=== PATIENT | male | born 1945 | race Caucasian/White ===

== ENCOUNTER 2017-09-19 19:22 | Observation (INO) | payer MEDICARE, OTHER ==
[~2017-09-19] VITALS: Ht 182.9 cm; Wt 130.6 kg
[~2017-09-19 19:22] MED LIST: ACTOS 30 MG TAB30 M1 PO; ALLOPURINOL 30300 M1 PO; ALLOPURINOL 30300 M2 PO; ALLOPURINOL 30300 M3 PO; APRODINE TABLE1 EACH; ASPIR 8181 MG PO; ASPIRIN325; ATENOLOL 25 MG25 M1 PO; CENTRUM SILVER1 EAC4 PO; DHEA PO; DOCUSATE SODIU100 MG; ELIQUIS5 MG PO; ENOXAPARIN30 MG/0.3; FISH OIL 1,001000 M2 PO; FISH OIL 1,2001 EAC4 PO; HUMALOG SUBQ; HUMALOG100 UNIT/1 SUBQ; HYDROCODONE-AP1 EAC6 PO; KEFLEX500 MG PO; LANTUS SOL100 UNIT/1 SUBQ; LANTUS SUBQ; LANTUSSOLASTAR SUBQ; LASIX 20 MG TAB20 MG PO; LISINOPRIL20 MG PO; LISINOPRIL5 MG PO; METOPROLOL SUCC25 M1 PO; NORCO 5-325 TA1 EACH PO; ONDANSETRON HCL4 M2 PO; OXYCODONE HCL 55 MG PO; OXYCODONE HCL5 M1; POTASSIUM CITRATE PO; POTASSIUM20 PO; PRILOSEC PO; PROPAFENONE 15150 MG PO; SIMVASTATIN40 MG PO; SYMLINPEN1500 MCG/1 SUBQ; SYMLINPEN2700 MCG/2 SUBQ; SYNTHROID100 MCG PO; TOPROL XL25 MG PO; UNITHROID112 MCG PO; UROCIT-K10 ME1 PO; VITAMIN D1000 UNI1 PO; WELLBUTRIN SR100 MG PO; WELLBUTRIN SR150 MG PO; XALATAN2.5 ML OPHTHALMIC; ZOCOR20 MG PO; ZOLOFT100 MG PO; [UNRECOGNIZED DRUG - CODE] PO
[2017-09-19 19:23] VITALS: BP 109/48
[2017-09-19] MEDS ORDERED: WELLBUTRIN SR100 MG PO (19:37)
[2017-09-19] MEDS ORDERED: LOPRESSOR50 PO (19:38)
[2017-09-19] MEDS ORDERED: ZOLOFT 50 MG TA50 M1 PO (19:39)
[2017-09-19] MEDS ORDERED: MAGOX 400400 MG PO (19:39)
[2017-09-19] MEDS ORDERED: HUMALOG JU100 UNIT/1 SUBQ (19:40)
[2017-09-19] MEDS ORDERED: HYDROXYZINE HCL50 MG PO (19:40)
[2017-09-19] MEDS ORDERED: VIAGRA50 MG PO (19:40)
[2017-09-19] MEDS ORDERED: AMBIEN 5 MG TABL5 M1 PO (19:40)
[2017-09-19 19:59] LABS: ABSOLUTE EOSINOPHILS 0.1 thou/uL (0.0-0.7); ABSOLUTE LYMPHOCYTES 1.3 thou/uL (0.8-5.3); ABSOLUTE MONOCYTES 0.8 thou/uL (0.0-1.2); ABSOLUTE NEUTROPHILS 9.6 thou/uL (1.6-8.1); BASOPHILS 0.3 %; EOSINOPHILS 1.2 %; HEMATOCRIT 36.8 % (42.0-52.0); HEMOGLOBIN 12.1 gm/dL (14.0-18.0); LYMPHOCYTES 11.1 %; MCH 31.6 pg (26.0-34.0); MCHC 32.9 g/dL (28.0-37.0); MONOCYTES 6.5 %; MPV 9.3 fl. (7.2-11.1); NUCLEATED RBCS 0 /100WBC; PLATELET COUNT* 251 thou/uL (150-400); POLYS 80.9 %; RBC 3.83 mil/uL (4.50-6.00); RDW-CV 14.2 % (10.5-14.5); WBC 11.8 thou/uL (4.0-11.0)
[2017-09-19 20:03] LABS: ANION GAP 7 mmol/L (7-16); BUN 31 mg/dL (7-18); CALCIUM 8.2 mg/dL (8.5-10.1); CHLORIDE 105 mmol/L (98-107); CO2 27 mmol/L (21-32); CREATININE 1.2 mg/dL (0.6-1.3); GLUCOSE 131 mg/dL (70-99); POTASSIUM 3.3 mmol/L (3.5-5.1); SODIUM 139 mmol/L (136-145)
[2017-09-19 20:06] LABS: PROTIME 10.1 Seconds (9.20-11.50)
[2017-09-19 20:14] LABS: ALBUMIN 3.1 g/dL (3.4-5.0); ALKALINE PHOSPHATASE 61 U/L (46-116); LIPASE 66 U/L (73-393); NT-PRO BRAIN NAT PEPTIDE 292 pg/mL (<300); SGOT 15 U/L (15-37); SGPT 22 U/L (30-65); TOTAL BILIRUBIN 0.3 mg/dL (<0.1-1.0); TOTAL PROTEIN 6.4 g/dL (6.4-8.2); TROPONIN-I LEVEL <0.06 ng/mL (<0.06)
[2017-09-19 23:10] VITALS: BP 142/57
--- NOTE | 2017-09-20 00:58 | NUR ---
09/20/27 1045 PT ARRIVED VIA STRETCHER FROM ED IN STABLE CONDITION. AT BEDSIDE. PT ORIENTED TO SURROUNDING. AND ADMITTED TO UNIT
[2017-09-20 02:05] LABS: URINE BILIRUBIN NEGATIVE (Negative); URINE BLOOD NEGATIVE (Negative); URINE CLARITY CLEAR; URINE COLOR YELLOW; URINE GLUCOSE-RANDOM NEGATIVE (Negative); URINE KETONES TRACE (Negative); URINE LEUKOCYTES-REFLEX NEGATIVE (Negative); URINE NITRITE-REFLEX NEGATIVE (Negative); URINE PROTEIN NEGATIVE (Negative); URINE SPECIFIC GRAVITY 1.025 (1.005-1.030); URINE UROBILINOGEN 0.2 E.U./dl (0.2-1.0)
[2017-09-20 04:00] VITALS: BP 155/60
--- NOTE | 2017-09-20 04:31 | NUR ---
PT CONTINUES ON RA. PT SR W/BBB. PT CONTINUES WITH MAINTENANCE IVF TO CORRECT ADMITTING HYPOGLYCEMIA. PT HAS HAD NO C/O PAIN.
[2017-09-20 08:05] VITALS: BP 146/72
[2017-09-20 11:04] VITALS: BP 150/65
--- NOTE | 2017-09-20 11:42 | NUR ---
RECIEVED REPORT FROM LAKESHIA AND ASSUMED CARE OF PT @ 5351. PT A/O X4,VSS,TRACING SR BBB ON MONITOR.LUNG SOUNDS ARE CLEAR.LAST BM WAS 09-19-17.IV LEFT FOREARM PATENT AND SALINE LOCKED.ACCU CHECK COMPLETED PER ORDERS.PT IS CALM AND COOPERATIVE WITH NO C/O PAIN AT TIME OF ASSESSMENT.PT IS UP SBA TO BATHROOM.PT LEFT RESTING IN BED WITH CALL LIGHT AND FALL PRECAUTIONS IN PLACE.WILL CONTINUE TO MONITOR.
--- NOTE | 2017-09-20 13:21 | EKG ---
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: : 1945 Requested By: Sheree Roman Order Number: [id number] MD: Isai Vidal Measurements Intervals [place] Rate: 70 P: 2 TN: 221 QRS: -106 QRSD: 141 T: 20 QT: 428 QTc: 462 Interpretive Statements Sinus rhythm Prolonged TN interval Right bundle branch block Inferior infarct, old Lateral leads are also involved Compared to ECG 04/21/2014 08:48:02 First degree AV block now present Poor R-wave progression no longer present Right-axis deviation no longer present Myocardial infarct finding still present Electronically Signed On 09-20-2017 13:21:10 CDT by Isai Vidal [email or web address] <ELECTRONICALLY SIGNED> By: Isai Vidal MD, FACC 09/20/17 1321 00 00 Isai Vidal MD, FAC /EPI
[2017-09-20 17:40] VITALS: BP 150/65
--- NOTE | 2017-09-20 18:05 | NUR ---
PT OK FOR DISCHARGE.PAPERWORK COMPLETED AND GONE OVER WITH PT AND SPOUSE.IV REMOVED.HEART MONITOR REMOVED AND RETURNED TO NURSING STATION.ALL PERSONAL BELONGINGS PACKED AND TAKEN WITH PT. WALKED OUT BY NURSING STAFF TO PERSONAL VEHICLE.
== END 2017-09-20 18:05 | disposition home or self-care (01) ==
LOC: M.ERS 19:22 → M.TBA-ER 20:52 → M.2W 23:24
PROVIDERS: Physician Assistant; ADMIT Family Medicine
DX: T38.3X1A Poisoning by insulin and oral hypoglycemic [antidiabetic] drugs, accidental (unintentional), initial encounter (principal); R41.82 Altered mental status, unspecified; I12.9 Hypertensive chronic kidney disease with stage 1 through stage 4 chronic kidney disease, or unspecified chronic kidney disease; E11.22 Type 2 diabetes mellitus with diabetic chronic kidney disease; N18.9 Chronic kidney disease, unspecified; Z79.4 Long term (current) use of insulin; G93.41 Metabolic encephalopathy; E66.9 Obesity, unspecified; E03.9 Hypothyroidism, unspecified; E11.649 Type 2 diabetes mellitus with hypoglycemia without coma; I48.92 Unspecified atrial flutter; Z95.0 Presence of cardiac pacemaker; Z95.5 Presence of coronary angioplasty implant and graft; Z98.890 Other specified postprocedural states

== ENCOUNTER → 2017-11-24 | Outpatient (CLI) | payer MEDICARE, OTHER ==
[~2017-11-24] MED LIST changes: +ACETAMINOPHEN-1 EAC1 PO; +AMBIEN 5 MG TABL5 M1 PO; +AUGMENTIN 875-1 EACH PO; +BYDUREON B2 MG/0.85 SUBQ; +HUMALOG JU100 UNIT/1 SUBQ; +HYDROXYZINE HCL50 MG PO; +LANTUS100 UNIT/M SUBQ; +LOPRESSOR50 PO; +MAGOX 400400 MG PO; +METFORMIN HCL500 MG PO; +VIAGRA50 MG PO; +ZOLOFT 50 MG TA50 M1 PO
== END ==
LOC: M.CT 12:31
DX: M47.22 Other spondylosis with radiculopathy, cervical region (principal); M48.02 Spinal stenosis, cervical region

== ENCOUNTER 2018-01-20 23:08 | Inpatient (IN) | payer MEDICARE, OTHER ==
[~2018-01-20] VITALS: Ht 182.9 cm; Wt 114.3 kg
--- NOTE | ~2018-01-20 | EKG ---
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
--- NOTE | ~2018-01-20 | EKG ---
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
[~2018-01-20 23:08] MED LIST changes: -ACETAMINOPHEN-1 EAC1 PO; -AUGMENTIN 875-1 EACH PO; -BYDUREON B2 MG/0.85 SUBQ; -LANTUS100 UNIT/M SUBQ; -METFORMIN HCL500 MG PO
[2018-01-20 23:09] VITALS: BP 152/128
[2018-01-21] VITALS (7 sets, daily range): BP systolic 127–154; BP diastolic 59–71
[2018-01-21] MEDS ORDERED: ZOCOR20 MG PO (00:04)
[2018-01-21] MEDS ORDERED: ASPIR 8181 MG PO (00:04)
[2018-01-21] MEDS ORDERED: BYDUREON B2 MG/0.85 SUBQ (00:05)
[2018-01-21] MEDS ORDERED: LANTUS100 UNIT/M SUBQ (00:05)
[2018-01-21] MEDS ORDERED: METFORMIN HCL500 MG PO (00:05)
[2018-01-21 00:09] LABS: HEMATOCRIT 40.3 % (42.0-52.0); HEMOGLOBIN 13.5 gm/dL (14.0-18.0); MCH 31.7 pg (26.0-34.0); MCHC 33.6 g/dL (28.0-37.0); MCV 94.4 fL (80.0-100.0); MPV 9.7 fl. (7.2-11.1); NUCLEATED RBCS 0 /100WBC; PLATELET COUNT* 293 thou/uL (150-400); RBC 4.27 mil/uL (4.50-6.00); RDW-CV 13.5 % (10.5-14.5); WBC 15.4 thou/uL (4.0-11.0)
[2018-01-21 00:14] LABS: PROTIME 10.2 Seconds (9.20-11.50)
[2018-01-21 00:16] LABS: ANION GAP 7 mmol/L (7-16); BUN 33 mg/dL (7-18); CALCIUM 8.7 mg/dL (8.5-10.1); CHLORIDE 101 mmol/L (98-107); CO2 27 mmol/L (21-32); CREATININE 1.3 mg/dL (0.6-1.3); GLUCOSE 132 mg/dL (70-99); POTASSIUM 4.3 mmol/L (3.5-5.1); SODIUM 135 mmol/L (136-145)
[2018-01-21 00:23] LABS: ALBUMIN 3.1 g/dL (3.4-5.0); ALKALINE PHOSPHATASE 76 U/L (46-116); NT-PRO BRAIN NAT PEPTIDE 162 pg/mL (<300); SGOT 25 U/L (15-37); SGPT 41 U/L (30-65); TOTAL BILIRUBIN 0.6 mg/dL (<0.1-1.0); TOTAL PROTEIN 6.6 g/dL (6.4-8.2); TROPONIN-I LEVEL <0.06 ng/mL (<0.06)
[2018-01-21 01:05] LABS: ABSOLUTE EOSINOPHILS 0.2 thou/uL (0.0-0.7); ABSOLUTE LYMPHOCYTES 0.9 thou/uL (0.8-5.3); ABSOLUTE MONOCYTES 0.8 thou/uL (0.0-1.2); ABSOLUTE NEUTROPHILS 13.6 thou/uL (1.6-8.1); PLATELET ESTIMATE ADEQUATE
[2018-01-21 07:51] LABS: URINE BILIRUBIN NEGATIVE (Negative); URINE BLOOD NEGATIVE (Negative); URINE CLARITY CLEAR; URINE COLOR YELLOW; URINE GLUCOSE-RANDOM 3+ (Negative); URINE KETONES TRACE (Negative); URINE LEUKOCYTES-REFLEX NEGATIVE (Negative); URINE NITRITE-REFLEX NEGATIVE (Negative); URINE PROTEIN NEGATIVE (Negative); URINE SPECIFIC GRAVITY >= 1.030 (1.005-1.030); URINE UROBILINOGEN 0.2 E.U./dl (0.2-1.0)
[2018-01-22] VITALS (8 sets, daily range): BP systolic 95–148; BP diastolic 46–70
[2018-01-22 03:50] LABS: HEMATOCRIT 36.4 % (42.0-52.0); HEMOGLOBIN 11.9 gm/dL (14.0-18.0); MCH 31.4 pg (26.0-34.0); MCHC 32.8 g/dL (28.0-37.0); MCV 95.8 fL (80.0-100.0); MPV 10.1 fl. (7.2-11.1); RBC 3.8 mil/uL (4.50-6.00); RDW-CV 13.5 % (10.5-14.5); WBC 13.5 thou/uL (4.0-11.0)
[2018-01-22 04:04] LABS: ALBUMIN 2.5 g/dL (3.4-5.0); ALKALINE PHOSPHATASE 67 U/L (46-116); ANION GAP 8 mmol/L (7-16); BUN 21 mg/dL (7-18); CHLORIDE 101 mmol/L (98-107); CO2 26 mmol/L (21-32); GLUCOSE 127 mg/dL (70-99); POTASSIUM 3.9 mmol/L (3.5-5.1); SGOT 24 U/L (15-37); SGPT 31 U/L (30-65); SODIUM 135 mmol/L (136-145); TOTAL BILIRUBIN 0.6 mg/dL (<0.1-1.0); TOTAL PROTEIN 5.7 g/dL (6.4-8.2); TROPONIN-I LEVEL <0.06 ng/mL (<0.06)
--- NOTE | 2018-01-22 08:42 | CON ---
[facility] [address] [place] [address] CONSULTATION Name: SUGAR ALVES Room: [address] IN .R.#: [id number] Admission: 01/21/18 Attend Phys: Ortiz Hoffmann MD Discharge: Date of : 45 Report #: [id number] THIS REPORT FOR: //name// CC: Ortiz Gilman III, DO DATE OF SERVICE: 01/21/2018 INDICATION: Syncope. HISTORY OF PRESENT ILLNESS: The patient is a very pleasant 72-year-old gentleman with history of coronary artery disease. He has a remote history of coronary artery bypass grafting, 4 vessels in 03/2016. He has preserved left ventricular systolic function. He is status post dual chamber pacemaker placement for second degree AV block. He presented last evening after a syncopal episode. He had been watching TV in a recliner. He had gotten up to go to the bedroom. He fell against the wall and his then noticed that he fell to the floor and became fully syncopal. There was no seizure activity witnessed. There was no loss of bowel or bladder continence. He did receive some contusions in the fall, but no other significant injuries. He has been having some unsteadiness on his feet that has been improving with rehabilitation. Of note, he did have a myelogram yesterday morning. He had been n.p.o. after midnight the night before. He did note feeling some slight symptoms before passing out. This is not the first time he has had these types of episodes. PAST MEDICAL HISTORY: 1. Coronary artery disease with preserved left ventricular systolic function and 4-vessel coronary artery bypass grafting in 2016. 2. Moderate nonocclusive bilateral carotid disease. 3. Type 2 diabetes mellitus. 4. Hypertension. 5. Hyperlipidemia. 6. Nephrolithiasis. 7. Obesity. 8. Obstructive sleep apnea. 9. History of second-degree AV block, status post dual chamber pacemaker placement. 10. Thyroid disease. 11. Gout. 12. DJD. Cardiac catheterization 11/09/2017 showed normal left main, 70% [place] [address] CONSULTATION Name: SUGAR ALVES Room: [address] IN [facility]#: [id number] Admission: 01/21/18 Attend Phys: Ortiz Hoffmann MD Discharge: Date of : 45 Report #: [id number] stenosis followed by 80-90% stenosis and totally occluded distally. The diagonal branch has an 80% ostial stenosis and is bypassed. The circumflex has a 75% mid stenosis followed by an 80% stenosis into obtuse marginal branch that is bypassed. The right coronary artery has a 70% proximal stenosis and it is distally anastomosed by a saphenous vein graft. Distal to the graft insertion is a 60-70% posterolateral LV branch stenosis. LEHMAN graft to the LAD is widely patent. A saphenous vein graft to the diagonal and obtuse marginal is widely patent. A saphenous vein graft to the right coronary artery is widely patent. Echocardiogram 11/09/2017 shows normal LV systolic function with an EF of 55-60%. There is dyssynergy noted of the left ventricle consistent with a paced rhythm. Diastolic dysfunction noted consistent with elevated filling pressures. ALLERGIES: None documented. HOME MEDICATIONS: Allopurinol 150 mg p.o. daily, aspirin 81 mg p.o. daily, Wellbutrin-SR 100 mg p.o. daily, fish oil 1000 mg p.o. daily, exenatide 2 mg subq weekly, hydroxyzine 25 mg b.i.d. p.r.n., Lantus subq at bedtime, dose unknown, lispro 3 units subq before meals, latanoprost eyedrops at bedtime, Unithroid 112 mcg daily, lisinopril 5 mg daily, magnesium oxide 400 mg daily, metformin 500 mg b.i.d., metoprolol succinate 25 mg daily, multivitamin 1 tablet daily, potassium citrate 10 mEq b.i.d., Zoloft 75 mg daily, Zocor 20 mg at bedtime, Prilosec 40 mg daily. FAMILY HISTORY: Noncontributory. SOCIAL HISTORY: The patient is a lifelong nonsmoker. There is no use of alcohol. The patient is . His is in attendance with him. PHYSICAL EXAMINATION: VITAL SIGNS: Stable. Blood pressure 130/69, pulse is 80 and regular. GENERAL: This is a pleasant, obese gentleman in no distress. Mood and affect appropriate. HEENT: Extraocular muscles intact. Mucous membranes moist. NECK: Shows no jugular venous distention. I do not appreciate bruit. CHEST: Reveals clear lung mary. CARDIOVASCULAR: Reveals a regular rhythm without gallop or murmur. ABDOMEN: Reveals a protuberant abdomen, soft and nontender. EXTREMITIES: Shows no edema. Peripheral pulses 2+ and palpable. SKIN: Dry. LABORATORY DATA: A 12-lead EKG shows atrial sensing with ventricular pacing. Labs are reviewed. Sodium 135, potassium 4.3, chloride 101, bicarbonate 27, BUN 33, creatinine 1.3, serum glucose 132. LFTs within normal limits. Troponin less than 0.06. NT-proBNP 162. White blood cell count 15.4, hemoglobin 13.5, [facility] [address] [place] [address] CONSULTATION Name: SUGAR ALVES Room: [address] IN .R.#: [id number] Admission: 01/21/18 Attend Phys: Ortiz Hoffmann MD Discharge: Date of : 45 Report #: [id number] platelet count 293,000. Carotid Doppler studies show no evidence of hemodynamically significant stenoses. IMPRESSION AND RECOMMENDATIONS: 1. Syncope, likely due to orthostasis. The patient has shown nothing but a paced rhythm on monitor. We will interrogate his pacemaker to rule out underlying dysrhythmia. 2. Hypertension, well controlled at present. I would discontinue his lisinopril at this time to see if this may avert some of his orthostasis in the future. 3. Dyslipidemia. Continue simvastatin at current dose. 4. Coronary artery disease, presently stable. He is having no symptoms to suggest angina. 5. Chronic diastolic heart failure, presently well compensated. 6. Obesity. The patient has been pursuing rehabilitation for exercise. 7. Type 2 diabetes per primary physician. <ELECTRONICALLY SIGNED> By: Sugar Steen MD, [facility] 01/22/18 0842 [id number] Steen MD, FACC /nt
[2018-01-22] MEDS ORDERED: AUGMENTIN 875-1 EACH PO (13:42)
[2018-01-22] MEDS ORDERED: ACETAMINOPHEN-1 EAC1 PO (15:01)
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
--- NOTE | 2018-01-29 09:32 | EEG ---
[facility] [address] [place] [address] EEG STUDY REPORT Name: SUGAR ALVES Room: [address] IN M.R.#: [id number] Admission: 01/21/18 Attend Phys: Ortiz Hoffmann MD Discharge: 01/22/18 Date of : 45 Report #: [id number] THIS REPORT FOR: //name// CC: Ortiz Hurtado [facility] DATE OF SERVICE: 01/21/2018 This patient is being evaluated for syncope. EEG is being done to evaluate the possibility of seizure. EEG was done by placing the electrodes by standard 10-20 system of electrode placement. Both referential and sequential montages were used for recording. Background activity in this patient's EEG is about 10 Hz and 30 microvolt. The patient went to sleep that is associated with bilaterally symmetrical sleep spindle and vertex sharp waves. Photic stimulation is unremarkable. Throughout the record, no active epileptiform activity was noticed. IMPRESSION: This patient's EEG is within normal limits. Thank you very much for this referral. <ELECTRONICALLY SIGNED> By: Rafa Hammer MD 01/29/18 0932 1507 [id number] Hammer MD /nt
== END 2018-01-22 15:30 | disposition home or self-care (01) | DRG 178 ==
LOC: M.ERS 23:08 → M.ICU 01-21 01:20 → M.TBA-ER 01-21 01:20 → M.ICU 01-21 07:44
PROVIDERS: Emergency Medicine; Internal Medicine; ADMIT Internal Medicine
DX: J69.0 Pneumonitis due to inhalation of food and vomit (principal); E44.1 Mild protein-calorie malnutrition; I50.32 Chronic diastolic (congestive) heart failure; R65.10 Systemic inflammatory response syndrome (SIRS) of non-infectious origin without acute organ dysfunction; E86.0 Dehydration; Z96.641 Presence of right artificial hip joint; F43.10 Post-traumatic stress disorder, unspecified; S51.812A Laceration without foreign body of left forearm, initial encounter; S70.01XA Contusion of right hip, initial encounter; S61.411A Laceration without foreign body of right hand, initial encounter; S00.81XA Abrasion of other part of head, initial encounter; E03.9 Hypothyroidism, unspecified; E11.65 Type 2 diabetes mellitus with hyperglycemia; I25.10 Atherosclerotic heart disease of native coronary artery without angina pectoris; G47.33 Obstructive sleep apnea (adult) (pediatric); E66.9 Obesity, unspecified; M48.00 Spinal stenosis, site unspecified; G56.20 Lesion of ulnar nerve, unspecified upper limb; D64.9 Anemia, unspecified; M10.9 Gout, unspecified; I11.0 Hypertensive heart disease with heart failure; E11.649 Type 2 diabetes mellitus with hypoglycemia without coma; W18.09XA Striking against other object with subsequent fall, initial encounter; Y93.89 Activity, other specified; Y92.89 Other specified places as the place of occurrence of the external cause; Z95.810 Presence of automatic (implantable) cardiac defibrillator; Z87.442 Personal history of urinary calculi; Y99.8 Other external cause status; Z68.34 Body mass index [BMI] 34.0-34.9, adult; Z95.1 Presence of aortocoronary bypass graft; Z90.49 Acquired absence of other specified parts of digestive tract; Z87.828 Personal history of other (healed) physical injury and trauma; Z79.4 Long term (current) use of insulin; Z79.82 Long term (current) use of aspirin; Z79.84 Long term (current) use of oral hypoglycemic drugs; Z79.899 Other long term (current) drug therapy

== ENCOUNTER → 2018-01-20 | Outpatient (CLI) | payer MEDICARE, OTHER ==
[2018-01-20 11:33] VITALS: BP 126/70
[2018-01-20 11:52] VITALS: BP 126/81
== END ==
LOC: M.RAD 08:21
DX: M48.061 Spinal stenosis, lumbar region without neurogenic claudication (principal)

== ENCOUNTER 2018-06-21 10:37 | Emergency (ER) | payer MEDICARE, OTHER ==
[~2018-06-21] VITALS: Ht 182.9 cm; Wt 106.6 kg
[~2018-06-21 10:37] MED LIST changes: +ACETAMINOPHEN-1 EAC1 PO; +AUGMENTIN 875-1 EACH PO; +BYDUREON B2 MG/0.85 SUBQ; +LANTUS100 UNIT/M SUBQ; +METFORMIN HCL500 MG PO; +WELLBUTRIN SR200 MG PO; -ZOLOFT 50 MG TA50 M1 PO
[2018-06-21] MEDS ORDERED: ACETAMINOPHEN-1 EAC1 PO (12:03)
[2018-06-21 12:16] VITALS: BP 145/76
== END 2018-06-21 12:17 | disposition home or self-care (01) ==
LOC: M.ERS 10:37
DX: M79.632 Pain in left forearm (principal); M79.631 Pain in right forearm; I10 Essential (primary) hypertension; E11.9 Type 2 diabetes mellitus without complications; E03.9 Hypothyroidism, unspecified; G47.30 Sleep apnea, unspecified; Z96.653 Presence of artificial knee joint, bilateral; Z95.1 Presence of aortocoronary bypass graft; Z96.641 Presence of right artificial hip joint; Z90.49 Acquired absence of other specified parts of digestive tract; W00.0XXA Fall on same level due to ice and snow, initial encounter; Y93.89 Activity, other specified; Y92.89 Other specified places as the place of occurrence of the external cause; Y99.8 Other external cause status